=== PATIENT | male | born 2000 | race Two or more races ===

== ENCOUNTER 2018-04-02 23:37 | Emergency (ER) | payer MEDICAID ==
[~2018-04-02] VITALS: Ht 167.6 cm; Wt 86.2 kg
[2018-04-02 23:53] VITALS: BP 128/79
[2018-04-03] MEDS ORDERED: Tylenol #3 tab (300mg/30mg) ORAL ONE (00:15)
[2018-04-03] MEDS ORDERED: AMOXICILLIN500 MG ORAL (00:30)
[2018-04-03] MEDS ORDERED: ACETAMINOPHEN-1 EAC1 ORAL (00:30)
[2018-04-03 00:36] VITALS: BP 125/73
--- NOTE | 2018-04-03 01:27 | Emergency Room Report ---
History of Present Illness General Chief Complaint: Toothache Source: Patient Present Illness HPI 17-year-old male presents ED for evaluation. Complaining of tooth pain which started yesterday. Throbbing, 9 out of 10, nonradiating. Denies fevers chills. Denies any neck stiffness. Denies any discharge. States that his wisdom teeth are coming through. No other aggravating relieving factors. Denies any other associated symptoms Allergies: Coded Allergies: Dust (Unverified Allergy, Mild, 04/02/18) Patient History Past Medical History: none Past Surgical History: none Pertinent Family History: none Social History: Denies: smoking, alcohol use, drug use Immunizations: UTD Reviewed Nursing Documentation: PMH: Agreed; PSxH: Agreed Nursing Documentation-PMH Past Medical History: No Stated History Review of Systems All Other Systems: negative except mentioned in HPI Physical Exam Vital Signs Date Time Temp Pulse Resp B/P (MAP) Pulse Ox O2 Delivery O2 Flow Rate FiO2 04/02/18 23:46 98.8 72 12 128/79 97 04/02/18 23:53 Room Air Sp02 EP Interpretation: reviewed, normal General Appearance: no apparent distress, alert, GCS 15, non-toxic Head: normocephalic Eyes: bilateral eye normal inspection, bilateral eye PERRL ENT: hearing grossly normal, normal pharynx, no angioedema, normal voice, uvula midline, other - R lower wisdom tooth erupting. no erythema/induration. no discharge Neck: full range of motion, supple, no meningismus, supple/symm/no masses Respiratory: normal inspection Cardiovascular #1: normal inspection Gastrointestinal: normal inspection Rectal: deferred Genitourinary: no CVA tenderness Musculoskeletal: normal inspection Neurologic: alert, oriented x3, responsive, motor strength/tone normal, sensory intact, speech normal Psychiatric: normal inspection Skin: normal inspection Lymphatic: normal inspection Medical Decision Making Diagnostic Impression: Primary Impression: Pericoronitis ER Course 17-year-old male presents ED complaining of tooth pain. Cracked tooth, dental abscess, cavity Patient placed on stretcher. After initial history, physical exam reveals a young male in mild distress. Is evidence of abruption of the right lower wisdom tooth. No surrounding fluctuance or discharge. No nuchal rigidity. Patient afebrile, nontoxic. Discussed findings with patient. We'll prescribe antibiotics and pain meds. Patient is to follow-up with dentist soon Given tylenol #3, and amoxicillin here Diagnosis - pericoronitis Stable and discharged to home prescription for tylenol #3 and amoxicillin. Instructed to see dentist as a walk-in this week. Return to ED if symptoms recur or worse Last Vital Signs Date Time Temp Pulse Resp B/P (MAP) Pulse Ox O2 Delivery O2 Flow Rate FiO2 04/03/18 00:37 98.8 70 12 125/73 99 Room Air Status: improved Disposition: HOME, SELF-CARE Condition: Stable Scripts Amoxicillin* (AMOXIL*) 500 Mg Capsule 500 MG ORAL THREE TIMES A DAY, #21 CAP Prov: Delroy Posada MD 04/03/18 Acetaminophen With Codeine (T#3) (TYLENOL #3 TAB*) Y Tab 1 TAB ORAL Q8H PRN for For Pain for 3 Days, TAB Prov: Delroy Posada MD 04/03/18 Referrals: NON PHYSICIAN (PCP) Patient Instructions: Pericoronitis Delroy Posada MD Apr 03, 2018 01:27
== END 2018-04-03 00:38 | disposition home or self-care (01) ==
LOC: EMR 23:59
DX: K05.30 Chronic periodontitis, unspecified (principal)
CPT/HCPCS: 99283

== ENCOUNTER 2018-09-26 01:14 | Emergency (ER) | payer MEDICAID, OTHER ==
[~2018-09-26] VITALS: Ht 167.6 cm; Wt 81.6 kg
[~2018-09-26 01:14] MED LIST: ACETAMINOPHEN-1 EAC1 ORAL; AMOXICILLIN500 MG ORAL
--- NOTE | 2018-09-26 01:21 | NUR ---
ED Nurse Note: pt walked in c/o back pain 2 wks but worsen today, pt denies any injuries nor trauma but reports lifting heavy objects at work. cms intact, ambulates w/ steady gait, will cont monitor.
[2018-09-26 01:40] VITALS: BP 127/86
--- NOTE | 2018-09-26 01:51 | NUR ---
ED Nurse Note: Meds given as ordered.
[2018-09-26 02:00] LABS: APPEARANCE,URINE CLEAR; BILIRUBIN, URINE NEGATIVE (NEGATIVE); COLOR,URINE PALE YELLOW; GLUCOSE, URINE (UA) NEGATIVE (NEGATIVE); KETONES,URINE NEGATIVE (NEGATIVE); LEUKOCYTE ESTERASE ,URINE NEGATIVE (NEGATIVE); NITRITE,URINE NEGATIVE (NEGATIVE); PH,URINE 5 (4.5-8.0); PROTEIN,URINE NEGATIVE (NEGATIVE); UROBILINOGEN,URINE NORMAL MG/DL (0.0-1.0)
--- NOTE | 2018-09-26 03:35 | Emergency Room Report ---
History of Present Illness General Chief Complaint: Back Pain-No Injury Source: Patient Present Illness HPI Patient presents with 2 days of increased lumbar pain. This mainly occurs when he is moving and twisting. 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 Last few days when he is been doing these activities the pain is increased. He feels stiffness in his lower back. The pain is rated 10/10 at this time and aching. It does not radiate down into his legs. There is no trauma. The patient denies any fevers , chills, dysuria, change in bowel habits, incontinence, saddle numbness, oncologic problems, IV drug use or blood thinners. The patient has not taken any medication to try treating himself for this pain. Patient denies medical problems. 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 Nursing Documentation: PMH: Agreed; PSxH: Agreed Nursing Documentation-PMH Past Medical History: No Stated History Review of Systems All Other Systems: negative except mentioned in HPI Physical Exam Vital Signs Date Time Temp Pulse Resp B/P (MAP) Pulse Ox O2 Delivery O2 Flow Rate FiO2 09/26/18 01:18 98.2 79 18 134/84 (101) 96 Room Air Sp02 EP Interpretation: reviewed, normal General Appearance: well appearing, no apparent distress, GCS 15 Head: normocephalic, atraumatic Eyes: bilateral eye normal inspection, bilateral eye PERRL ENT: hearing grossly normal, normal voice, moist mucus membranes Neck: full range of motion, supple, no bony tend Respiratory: lungs clear, normal breath sounds, no respiratory distress, speaking full sentences Cardiovascular #1: regular rate, rhythm Cardiovascular #2: 2+ radial (R) Gastrointestinal: normal inspection, non tender, soft Genitourinary: no CVA tenderness Musculoskeletal: other - Back muscle spasm without bony tenderness. Able to sit and stand. Straight leg raise is negative bilaterally. There is paraspinous muscle spasm bilaterally Neurologic: alert, oriented x3, motor strength/tone normal, DTRs symmetric, sensory intact, cerebellar normal, normal gait, speech normal Psychiatric: mood/affect normal Skin: no rash Medical Decision Making Diagnostic Impression: Primary Impression: Low back strain Qualified Codes: S39.012A - Strain of muscle, fascia and tendon of lower back , initial encounter ER Course Patient presents with lower back pain with repetitive motions lifting twisting and pushing heavy objects. Differential includes lumbar strain, degenerative disc disease, muscle spasm amongst others. Urinalysis is indicated to rule out urinary tract infection. Patient was was offered shots however he requested pills. He was given a dose of Motrin and also Soma. Imaging studies not indicated based on history and physical at this time. Urinalysis clear. The patient still is complaining about pain. Percocet given. Discussed assessment and the need for follow-up to learn back exercises and also physical therapy if needed. First report completed. Patient improved with treatment. No red flag symptoms or signs. Patient stable for outpatient observation and treatment. Laboratory Tests Test 09/26/18 01:53 Urine Color Pale yellow Urine Appearance Clear Urine pH 5 (4.5-8.0) Urine Specific [place] 1.015 (1.005-1.035) Urine Protein Negative (NEGATIVE) Urine Glucose (UA) Negative (NEGATIVE) Urine Ketones Negative (NEGATIVE) Urine Blood Negative (NEGATIVE) Urine Nitrite Negative (NEGATIVE) Urine Bilirubin Negative (NEGATIVE) Urine Urobilinogen Normal MG/DL (0.0-1.0) Urine Leukocyte Esterase Negative (NEGATIVE) Urine Opiates Screen Negative (NEGATIVE) Urine Barbiturates Screen Negative (NEGATIVE) Phencyclidine (PCP) Screen Negative (NEGATIVE) Urine Amphetamines Screen Negative (NEGATIVE) Urine Benzodiazepines Screen Negative (NEGATIVE) Urine Cocaine Screen Negative (NEGATIVE) Urine Marijuana (THC) Screen Negative (NEGATIVE) Last Vital Signs Date Time Temp Pulse Resp B/P (MAP) Pulse Ox O2 Delivery O2 Flow Rate FiO2 09/26/18 03:55 98.2 76 18 124/82 99 Room Air Status: improved Disposition: HOME, SELF-CARE Condition: Improved Scripts Tramadol Hcl* (ULTRAM*) 50 Mg Tablet 50 MG ORAL Q6H PRN for For Pain, #8 TAB 0 Refills Prov: Regino Ramirez MD 09/26/18 Methocarbamol* (ROBAXIN*) 500 Mg Tablet 500 MG PO TID, #10 TAB 0 Refills Prov: Regino Ramirez MD 09/26/18 Ibuprofen* (MOTRIN*) 600 Mg Tablet 600 MG ORAL Q6H PRN for For Pain, #20 TAB 0 Refills Prov: Regino Ramirez MD 09/26/18 Referrals: NON PHYSICIAN (PCP) Regino Ramirez MD Sep 26, 2018 03:35
[2018-09-26] MEDS ORDERED: IBUPROFEN600 MG ORAL (03:38)
[2018-09-26] MEDS ORDERED: ROBAXIN500 MG PO (03:38)
[2018-09-26] MEDS ORDERED: TRAMADOL HCL50 MG ORAL (03:38)
[2018-09-26] MEDS ORDERED: oxyCODONE HCL/Acetaminophen 5/325mg ORAL ONE (03:45)
[2018-09-26 03:55] VITALS: BP 124/82
--- NOTE | 2018-09-26 03:55 | NUR ---
ER DISCHARGE NOTE: Patient is cleared to be discharged per Dr. Ramirez. Medical report issued by . Pt is aox4 on room air with stable vital signs. Pt was given dc and prescription instructions and was able to verbalize understanding. Pt's id band removed. Pt is able to ambulate with steady gait and took all belongings.
== END 2018-09-26 03:55 | disposition home or self-care (01) ==
LOC: EMR 01:31
DX: S39.012A Strain of muscle, fascia and tendon of lower back, initial encounter (principal); X50.0XXA Overexertion from strenuous movement or load, initial encounter; Y92.9 Unspecified place or not applicable; Y99.0 Civilian activity done for income or pay; Z91.048 Other nonmedicinal substance allergy status
CPT/HCPCS: 80307; 81003; 99284

== ENCOUNTER 2020-02-13 09:56 | Emergency (ER) | payer MEDICAID, OTHER ==
[~2020-02-13] VITALS: Ht 167.6 cm; Wt 90.7 kg
[~2020-02-13 09:56] MED LIST changes: +IBUPROFEN600 MG ORAL; +ROBAXIN500 MG PO; +TRAMADOL HCL50 MG ORAL
--- NOTE | 2020-02-13 10:17 | NUR ---
ED Nurse Note: Pt walked into ED for R wrist pain for 5 days. Pt states it has been gettign more increasingly swollen. ROM 4/5 R wrist. No bleeding or wounds. Pt denies numbness/tingling.
--- NOTE | 2020-02-13 10:19 | Emergency Room Report ---
History of Present Illness General Chief Complaint: Pain Source: Patient Present Illness HPI The patient presents complaining of nodularity of his right wrist. He states that as far back as he can remember it has been present. As he grew the nodularity seem to grow also but has been stable over many years. Occasionally he has pain there. When he does have pain it causes minimal weakness in the hand without numbness. There is no fever or chills. There is no redness of the skin. At this time he rates the pain 8/10, some aching without radiation. Is not worsened with making a fist. The patient is right-handed. His job occasionally involves lifting heavy objects. Its not repetitive. Denies exposure to Covid positive contacts. Allergies: Coded Allergies: Dust (Unverified Allergy, Mild, 04/02/18) COVID-19 Screening Contact w/high risk pt: No Experienced COVID-19 symptoms?: No COVID-19 Testing performed [employer]': Yes COVID-19 Screening: Negative COVID-19 COVID-19 Testing Source: 01/2020 Patient History Past Medical History: see triage record Social History: Denies: smoking Social History Narrative Rapid agent Reviewed Nursing Documentation: PMH: Agreed; PSxH: Agreed Nursing Documentation-PMH Past Medical History: No Stated History Review of Systems Constitutional: Reports: see HPI Musculoskeletal: Reports: see HPI Skin: Reports: see HPI Neurological: Reports: see HPI Physical Exam Vital Signs Date Time Temp Pulse Resp B/P (MAP) Pulse Ox O2 Delivery O2 Flow Rate FiO2 02/13/20 10:00 98.1 74 17 134/90 (105) 95 Room Air Sp02 EP Interpretation: reviewed, normal General Appearance: well appearing, no apparent distress, GCS 15 Head: normocephalic Eyes: bilateral eye normal inspection, bilateral eye PERRL ENT: other - Wearing mask Neck: normal inspection, full range of motion Respiratory: normal inspection Cardiovascular #1: regular rate, rhythm, other - The lesions are nonpulsatile Cardiovascular #2: 2+ radial (R) - Good capillary fill Gastrointestinal: normal inspection Musculoskeletal: gait/station normal, normal range of motion, digits/nails normal, other - See skin Neurologic: alert, motor strength/tone normal, sensory intact Psychiatric: mood/affect normal Skin: normal color, no rash, warm/dry, other - 2 areas of nodularity volar surface of the forearm. These do not appear to be adherent to tendons. These feel superficial. There is no erythema, fluctuance or warmth. Medical Decision Making Diagnostic Impression: Primary Impression: Subcutaneous nodule ER Course The patient presents with nodularity of his right volar surface of his forearm that is been present for as long as he can remember. Differential includes fibroma, subcutaneous nodules of unknown etiology, tendinitis,, neuroma amongst others. Due to the chronic nature and lack of change significant oncologic or infectious etiology is extremely unlikely. X-rays not indicated. The patient is given ibuprofen. Discussed clinical diagnosis with the patient and the need for follow-up with a accounting instructor. No apparent medical emergency at this time. Patient stable for outpatient observation and treatment. Last Vital Signs Date Time Temp Pulse Resp B/P (MAP) Pulse Ox O2 Delivery O2 Flow Rate FiO2 02/13/20 10:31 98.0 83 20 134/89 99 Room Air Status: improved Disposition: HOME, SELF-CARE Condition: Improved Scripts Ibuprofen* (MOTRIN*) 600 Mg Tablet 600 MG ORAL Q6H PRN for FOR PAIN, #20 TAB 0 Refills Prov: Regino Ramirez MD 02/13/20 Referrals: [facility],REFERR[facility] (PCP) Regino Ramirez MD Feb 13, 2020 10:19
[2020-02-13 10:23] VITALS: BP 138/91
[2020-02-13] MEDS ORDERED: IBUPROFEN600 M1 ORAL (10:23)
--- NOTE | 2020-02-13 10:30 | NUR ---
ER DISCHARGE NOTE: Patient is cleared to be discharged per ERMD, pt is aox4, on room air, with stable vital signs. pt was given dc and prescription instructions, pt was able to verbalize understanding, pt id band removed. pt is able to ambulate with steady gait. pt took all belongings. Pt educated on f/u.
[2020-02-13 10:31] VITALS: BP 134/89
== END 2020-02-13 10:31 | disposition home or self-care (01) ==
LOC: EMR 10:15
DX: R22.31 Localized swelling, mass and lump, right upper limb (principal); R53.1 Weakness
CPT/HCPCS: 99282